=== PATIENT | female | born 1975 | race Hispanic/Latino ===

== ENCOUNTER → 2018-10-20 06:04 | Outpatient (CLI) | payer OTHER, SELFPAY ==
--- NOTE | 2018-10-20 | DI.MRI.S_ITS ---
PROCEDURE: MR KNEE LT WO CON INDICATIONS: Pain in left lower leg TECHNIQUE: Noncontrast sagittal PD fast spin echo and T2 fast spin echo with fat saturation, sagittal 3-D FLASH with fat saturation; coronal T1 spin echo and PD fast spin echo with fat saturation, and axial PD fast spin echo with fat saturation through the knee. COMPARISON: None. FINDINGS: Image quality: Severely degraded by motion artifact on multiple pulse sequences Menisci: The medial meniscus demonstrates myxoid degeneration. No definite tear identified by strict MR criteria although suboptimal evaluation given motion artifact. Lateral meniscal flounce image 26 series 12 without discrete tear. Presumed myxoid degeneration seen in the body on image 17 series 17. Cruciate ligaments: The anterior and posterior cruciate ligaments appear intact. Medial structures: The medial collateral ligament appears intact. The posterior oblique ligament, semimembranosus tendon insertions, oblique popliteal ligament, and meniscocapsular junction appear intact. Visualized portions of the pes anserinus tendons appear normal. No abnormal bursal fluid. Lateral structures: The lateral collateral ligament, long and short heads of the biceps femoris tendon appear intact. The popliteus tendon appears normal; the popliteofibular ligament appears intact. The posterosuperior and anteroinferior popliteomeniscal fascicles appear intact. The arcuate and fabellofibular ligaments appear intact, on either side of the lateral inferior geniculate artery. Iliotibial band appears normal. Anterior structures: Pretibial soft tissue edema. The quadriceps and patellar tendons appear intact. Patellar alignment is normal. No femoral trochlear dysplasia or ventral trochlear prominence. No edema in the infrapatellar fat pad. Bones and cartilage: No focal marrow contusion or discrete low signal fracture line. There are prominent presumed hemopoietic marrow signal changes raise the possibility of anemia. Within the medial compartment, no focal articular cartilage defect. Mild diffuse partial thickness loss is present. Within the lateral compartment, low-grade surface fraying of the femoral articular cartilage without focal defect. Within the patellofemoral compartment, diffuse partial thickness loss of the patellar articular cartilage. Femoral trochlear cartilage appears grossly intact Joint space: No pathologic joint effusion. No evidence of intra-articular loose body however suboptimal evaluation due to motion artifact. 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 Suboptimal evaluation due to motion degraded examination. Pretibial soft tissue edema. Mild degenerative joint disease. Small Reyna's cyst. Hemopoietic marrow signal changes suggest anemia. However recommend correlation with laboratory studies. Dictated by: Kiko Iraheta M.D. on 10/20/2018 at 9:09 Approved by: Kiko Iraheta M.D. on 10/20/2018 at 9:17
== END ==
PROVIDERS: Visit Provider Family Medicine
DX: M79.662 Pain in left lower leg (principal); M17.12 Unilateral primary osteoarthritis, left knee; M25.462 Effusion, left knee; M71.22 Synovial cyst of popliteal space [Baker], left knee
CPT/HCPCS: 73721

== ENCOUNTER 2019-10-17 06:14 | Emergency (ER) | payer OTHER, SELFPAY ==
[2019-10-17 06:22] VITALS: BMI 44.1
[2019-10-17 06:36] VITALS: BP 132/78; PULSE 86; RESP 15; TEMP 37.3; O2SAT 98
[2019-10-17] MEDS: BACITRACIN OINT 0.9 GM PCKT 1 APPLIC TOP (06:40)
--- NOTE | 2019-10-17 06:40 | PC.NURSE ---
pt states she thinks she has a splinter in her L posterior lateral foot x 3 weeks and unable to get it out or see her PCP. ambulatory. states sometimes when she pushes on it pus comes out. denies fever. MD at bedside to remove with needle. bacitracin to area and covered with bandaid
--- NOTE | 2019-10-17 06:57 | ED_ITS ---
HPI - Extremity Injury (Lower) General Chief Complaint: Extremity Injury, Lower Stated Complaint: pain in left foot [id number] Time Seen by Provider: 10/17/19 06:17 History of Present Illness HPI Narrative: 44-year-old woman brings her daughter for evaluation today and and asks to be seen regarding small foreign body in the bottom of her left foot. It has been present for 3 weeks it is tender when she walks on it. No significant erythema or infection. She is not sure what has caused the issue. He has been soaking her foot in water and still has a sensation of a foreign body. She has been unable to get in with her primary care physician and has a tele video appointment regarding this in 5 days. Related Data Home Medications Medication Instructions Recorded Confirmed levonorgestrel [Mirena] 52 mg INTRAU #0 ea 03/02/16 Allergies Allergy/AdvReac Type Severity Reaction Status Date / Time codeine AdvReac Mild VOMITING Unverified 08/14/17 12:31 Coconut Allergy Severe ANGIOEDEMA, Uncoded 08/14/17 12:31 VOMITING, BUMPS AROUND MOUTH Review of Systems Review of Systems Narrative: Pertinent positive and negative findings as per HPI Remainder of review of systems is otherwise unremarkable for Constitutional: Fevers, chills, weakness CV: Chest pain, palpitations, dyspnea on exertion Respiratory: Cough, wheeze, dyspnea GI: Nausea, vomiting, diarrhea, change in bowel habits, black or bloody stools Exam Narrative Exam Narrative: General: Alert appropriate in no acute distress Respiratory: Able to speak in full sentences, no obvious respiratory distress Skin: No obvious rashes, warm and dry Neurologic: Grossly intact no obvious asymmetries or abnormalities Psych, appropriate insight and affect, cooperative Extremity: Miniscule bit of debris in the superficial callus on the lateral aspect of her left foot. no redness, no drainage. Procedure: Using an 18 gauge needle this small bit of debris is lifted from the callus. Antibiotic ointment and Band-Aid are applied. Initial Vital Signs Initial Vital Signs: Vital Signs Temperature 99.2 F 10/17/19 06:36 Pulse Rate 86 10/17/19 06:36 Respiratory Rate 15 10/17/19 06:36 Blood Pressure 132/78 10/17/19 06:36 Pulse Oximetry 98 10/17/19 06:36 Course Orders Ordered: Discontinued Medications Bacitracin (Bacitracin) 1 applic TOP NOW ONE Stop: 10/17/19 06:34 Last Admin: 10/17/19 06:40 Dose: 1 applic Documented by: LATRICE Vital Signs Vital signs: Vital Signs - 8 hr 10/17/19 06:36 Temperature 99.2 F Pulse Rate 86 Respiratory Rate 15 Blood Pressure [Left Arm] 132/78 Pulse Oximetry 98 MDM - Extremity Injury (Lower) MDM Narrative Medical decision making narrative: Minor foreign body in the bottom of her left foot. I believe I was able to remove it simply with an 18 gauge needle and minimal trauma to the area. I did explain to her that sometimes very small pieces of material can cause significant discomfort and if this attempt today d id not get the entire bit of material it would be better to continue soaking with warm water and allow her body to push the trace amount of foreign material out by itself. She is safe for home discharge Discharge Plan Departure Patient Disposition: Home Clinical Impression: Foreign body in foot Qualifiers: Encounter type: initial encounter Laterality: left Qualified Code(s): S90.852A - Superficial foreign body, left foot, initial encounter Instructions: DI for Removal of Foreign Body From Skin Activity Restrictions/Additional Instructions: I believe I was able to get the small splinter out of your foot using an 18 gauge needle. If you still have the sensation of a foreign body, it is okay to soak her foot in warm water and your body will eventually push the foreign body out. Good luck Prescriptions: No Action levonorgestrel [Mirena] 1 EACH intrauterine device 52 mg INTRAU Qty: 0 RF: 0 Referrals: Timothy De La Cruz MD [Primary Care Provider] -
== END 2019-10-17 07:13 | disposition home or self-care (01) ==
PROVIDERS: Emergency Provider Emergency Medicine; PCP Family Medicine
DX: S90.852A Superficial foreign body, left foot, initial encounter (principal)
CPT/HCPCS: 99282

== ENCOUNTER → 2020-04-30 11:10 | Outpatient (CLI) | payer OTHER, SELFPAY ==
--- NOTE | 2020-04-30 11:13 | DI.MG.S_ITS ---
BILATERAL DIGITAL SCREENING MAMMOGRAM 3D/2D WITH CAD: 04/30/2020 CLINICAL: Routine screening. Baseline exam. No prior exams were available for comparison. The tissue of both breasts is heterogeneously dense. This may lower the sensitivity of mammography. Current study was also evaluated with a Computer Aided Detection (CAD) system. No significant masses, calcifications, or other findings are seen in either breast. IMPRESSION: NEGATIVE There is no mammographic evidence of malignancy. A 1 year screening mammogram is recommended. This exam was interpreted at Station ID: [id number]. NOTE: For mammograms, a report in lay terms will be sent to the patient. Approximately 15% of breast malignancies will not be visualized mammographically. In the management of a palpable breast mass, a negative mammogram must not discourage biopsy of a clinically suspicious lesion. Electronically Signed By: Chi pablo/peng:05/02/2020 13:47:13 letter sent: Normal Exam ACR BI-RADS Category 1: Negative [id number]
== END ==
PROVIDERS: PCP Family Medicine; Referring Provider Family Medicine; Visit Provider Family Medicine
DX: Z12.31 Encounter for screening mammogram for malignant neoplasm of breast (principal)
CPT/HCPCS: 77063; 77067

== ENCOUNTER → 2021-05-02 11:14 | Outpatient (CLI) | payer OTHER, SELFPAY ==
--- NOTE | 2021-05-02 | DI.MG.S_ITS ---
BILATERAL DIGITAL SCREENING MAMMOGRAM 3D/2D WITH CAD: 05/02/2021 CLINICAL: Routine screening. Comparison is made to exam dated: 04/30/2020 [facility]. The tissue of both breasts is heterogeneously dense. This may lower the sensitivity of mammography. Current study was also evaluated with a Computer Aided Detection (CAD) system. No significant masses, calcifications, or other findings are seen in either breast. There has been no significant interval change. IMPRESSION: NEGATIVE There is no mammographic evidence of malignancy. A 1 year screening mammogram is recommended. This exam was interpreted at Station ID: [id number]. NOTE: For mammograms, a report in lay terms will be sent to the patient. Approximately 15% of breast malignancies will not be visualized mammographically. In the management of a palpable breast mass, a negative mammogram must not discourage biopsy of a clinically suspicious lesion. Electronically Signed By: Chi pablo/peng:05/02/2021 11:59:16 letter sent: Normal Exam ACR BI-RADS Category 1: Negative [id number]
== END ==
PROVIDERS: PCP Family Medicine; Referring Provider Family Medicine; Visit Provider Family Medicine
DX: Z12.31 Encounter for screening mammogram for malignant neoplasm of breast (principal)
CPT/HCPCS: 77063; 77067

== ENCOUNTER → 2021-07-01 12:35 | Outpatient (CLI) | payer OTHER, SELFPAY ==
--- NOTE | 2021-07-01 12:36 | DI.MRI.S_ITS ---
PROCEDURE: MR CERVICAL SPINE WO CON INDICATIONS: Tension-type headache, unspecified, not intractabl TECHNIQUE: Noncontrast sagittal T1 spin echo and T2 fast spin echo, sagittal STIR, foraminal oblique sagittal T2 fast spin echo, and axial gradient echo or T2 fast spin echo through the cervical spine. COMPARISON: None. FINDINGS: Image quality: Excellent. Alignment and Curvature: There is normal bony alignment. Bone Marrow: Marrow demonstrates normal overall signal. Spinal Cord: Visualized spinal cord has normal size and signal. No cerebellar tonsillar herniation. Paraspinous Soft Tissues: No paravertebral masses. Prevertebral soft tissues are normal in thickness. Discs: Minimal desiccation is present at C3-4 C5-6. C2-C3: No disc bulge, spinal stenosis or foraminal narrowing. C3-C4: No disc bulge, spinal stenosis or foraminal narrowing. C4-C5: Minimal disc bulge with slight effacement of the anterior thecal sac. Mild to moderate right foraminal narrowing with uncovertebral hypertrophy. C5-C6: Minimal disc bulge without spinal stenosis. Minimal to mild bilateral foraminal narrowing, left greater than right with uncovertebral hypertrophy. C6-C7: No disc bulge or spinal stenosis. Minimal to mild left foraminal narrowing with uncovertebral hypertrophy. C7-T1: No disc bulge, spinal stenosis or foraminal narrowing. IMPRESSION: Early degenerative changes most notable at C4-5 as above. Dictated by: Nelda Morris M.D. on 07/03/2021 at 9:47 Approved by: Nelda Morris M.D. on 07/03/2021 at 10:01
== END ==
PROVIDERS: PCP Family Medicine; Referring Provider Family Medicine; Visit Provider Family Medicine
DX: G44.209 Tension-type headache, unspecified, not intractable (principal); R25.2 Cramp and spasm; M47.812 Spondylosis without myelopathy or radiculopathy, cervical region; M54.2 Cervicalgia; S13.4XXA Sprain of ligaments of cervical spine, initial encounter; W19.XXXA Unspecified fall, initial encounter
CPT/HCPCS: 72141

== ENCOUNTER → 2021-11-22 13:34 | Outpatient (CLI) | payer OTHER, SELFPAY ==
--- NOTE | 2021-11-22 13:37 | DI.RAD.S_ITS ---
PROCEDURE: XR CERVICAL SPINE 4V OR 5V INDICATIONS: NECK PAIN TECHNIQUE: 5 views of the cervical spine acquired. COMPARISON: None. FINDINGS: Bones: No fractures or dislocations to the C7 level. Oblique images demonstrate no bony foraminal stenoses. Mild facet hypertrophy throughout the mid and lower cervical spine. Mild multilevel foraminal stenoses throughout the mid and lower cervical spine. Soft tissues: No prevertebral soft tissue swelling. IMPRESSION: Multilevel degenerative disc disease. No acute fracture. No osseous lesion. If symptoms and/or clinical suspicion for pathology persist, further assessment with repeat, or advanced imaging (e.g., CT, MRI, or bone scan) may be helpful for further assessment. Dictated by: Ana Marin M.D. on 11/22/2021 at 15:51 Transcribed by: OMA on 11/22/2021 at 15:52 Approved by: Ana Marin M.D. on 11/22/2021 at 17:01
== END ==
PROVIDERS: PCP Family Medicine; Referring Provider Physical Medicine & Rehabilitation; Visit Provider Physical Medicine & Rehabilitation
DX: M50.120 Mid-cervical disc disorder, unspecified level (principal); M48.02 Spinal stenosis, cervical region
CPT/HCPCS: 72050; 99214

== ENCOUNTER → 2021-12-25 13:15 | Outpatient (CLI) | payer OTHER, SELFPAY ==
[2021-12-25 14:21] LABS: COVID19 -Nasal RAPID Negative (Negative)
== END ==
PROVIDERS: PCP Family Medicine; Referring Provider Physical Medicine & Rehabilitation; Visit Provider Physical Medicine & Rehabilitation
DX: Z20.822 Contact with and (suspected) exposure to COVID-19 (principal)
CPT/HCPCS: 87635; C9803

== ENCOUNTER 2021-12-26 08:58 | Outpatient (CLI) | payer OTHER, SELFPAY ==
[2021-12-26] VITALS (7 sets, daily range): BP systolic 128–160; BP diastolic 84–97; PULSE 65–75; RESP 18–20; TEMP 36.6; O2SAT 98–100
--- NOTE | 2021-12-26 09:00 | DI.RAD.S_ITS ---
PROCEDURE: PAIN C/T INTERLAMINAR INJECT INDICATIONS: SPINAL STENOSIS COMPARISON: [facility], MR, MR CERVICAL SPINE WO CON, 07/01/2021, 12:40. [facility], CR, XR CERVICAL SPINE 4V OR 5V, 11/22/2021, 14:26. FINDINGS: Fluoroscopic spot filming was performed to verify placement of a spinal needle at the C6-C7 level, as labeled on the films. Appropriate location of the needle tip was confirmed by injection of iodinated contrast. IMPRESSION: No significant intraprocedural abnormality. Dictated by: Wally Wang M.D. on 12/26/2021 at 13:28 Approved by: Wally Wang M.D. on 12/26/2021 at 13:29
--- NOTE | 2021-12-26 10:25 | PC.NURSE ---
Patient reports blood in urine and vague urinary symptoms. Denies burning/pain, urgency, frequency upon urination. States she has an appt with her PCP on Saturday. Urine dip completed - WNL except for + blood. Dr. Zhong reviewed. Patient wishes to proceed with injection.
[2021-12-26] MEDS: MIDAZOLAM 2 MG/2 ML VIAL IV (10:37)
--- NOTE | 2021-12-26 10:53 | P.PCN_ITS ---
Date/Time/Diagnoses Date of procedure: 12/26/21 Time of procedure: 10:53 Pre-procedure diagnosis: 1. CERVICAL STENOSIS, 2. CERVICAL HNP WITH UPPER EXTREMITY RADICULAR FEATURES Post-procedure diagnosis: same Procedure Notes Procedure: 1. FLUORSCOPICALLY GUIDED CONTRAST CONTROLLED INTERLAMINAR EPIDURAL STEROID INJECTION - C6/7 TL ARLETTE Indications: Marleny is referred by Dr. Flores for treatment of Cervical HNP with Upper Extremity Paresthesias. Physician: Arash Zhong Total Fluoroscopy time (seconds): 24 Total sedation minutes: 12 Complications: none Procedure in detail & Post-procedure care: FINDINGS Cervical Stenosis due to disc deterioration and nerve root irritation and nerve root irritation DESCRIPTION OF PROCEDURE Fluoroscopically guided, contrast-controlled C6/7 translaminar epidural steroid injection with conscious sedation. Following review of allergy and review of potential side effects and complications, including, but not necessarily limited to, infection, allergic reaction, local tissue breakdown, temporary as well as permanent nerve injury, stroke, paralysis, and possible , the patient indicated that patient understood and agreed to proceed. An informed consent document was signed by the patient, witnessed by a nurse, and placed in the patient's chart. Additionally, other treatment options including modalities, medications, and physical therapy were reviewed with the patient. After review of previous anaesthesic history and IV conscious sedation the patient was deemed safe to proceed with today?s procedure with IV conscious sedation as ASA class II designation. Safety time-out was performed to confirm patient ID, procedure to be performed and site of procedure. IV sedation was accomplished with a combination of 2mg of Versed administered by the RN after DO order, titrated to patient comfort during the course of the procedure while the patient remained responsive to all verbal commands. In the prone position, following sterile prep and drape of the cervical region, the C6/7 translaminar space was identified fluoroscopically. The skin was anesthetized via a 25-gauge 1.5-inch needle with 1% lidocaine solution. At this point, a 25-gauge, 2.5-inch short bevel spinal needle was atraumatically introduced and advanced under fluoroscopic guidance into epidural space at the C6/7 translaminar space. Depth was confirmed on lateral view. Radiological data, including multiple fluoroscopic views of the cervical spine, reveal a spinal needle at the C6/7 translaminar space. Lateral views then show placement of the needle in the epidural space. Subsequent views show contrast material flowing superiorly and inferiorly in the epidural space. DSA fluoroscopy with live contrast injection, once again, confirmed no vascular or intrathecal uptake. At this point, using loss of resistance technique with saline and air, the epidural space was entered. Following negative aspiration, injection of approximately 1.5 cc of Isovue-200 with live fluoroscopy in the AP view confirmed epidural flow in the epidural space without vascular or intrathecal uptake observed. Subsequently, a test dose of 1 cc of 1% lidocaine solution was injected and patient was observed for two minutes without signs or symptoms of complications, including abdominal pain, shortness of breath, bilateral upper or lower extremity weakness, nausea and vomiting, prior to steroid injection. At this point, 3cc or 30mg of dexamethasone was then injected without incident. The patient tolerated the procedure well without signs or symptoms of comp lications prior to being transferred to the recovery area for further monitoring, The patient was then transferred to the recovery area where they were observed for an appropriate period of time after the injection. The patient reported a VAS score of 6 prior to the procedure and a post-procedure VAS of 0. POST OP INSTRUCTIONS The patient was provided a Pain Log to continue to record their response to the target-specific procedure prior to follow-up visit with the referring provider. Additionally, specific post-injection care instructions and a contact number to our office were provided if concerns arise regarding possible complications associated with the procedure are suspected.
[2021-12-26] MEDS: DEXAMETHASONE 10 MG/ML VIAL 30 MG INJ (10:59)
[2021-12-26] MEDS: IOPAMIDOL 15 ML VIAL 3 ML INJ (10:59)
[2021-12-26] MEDS: BUPIVACAINE 0.25% (PF) VIAL 2 ML INJ (10:59)
== END 2021-12-26 11:15 | disposition home or self-care (01) ==
PROVIDERS: PCP Family Medicine; Referring Provider Physical Medicine & Rehabilitation; Visit Provider Physical Medicine & Rehabilitation
DX: M48.02 Spinal stenosis, cervical region (principal); M50.123 Cervical disc disorder at C6-C7 level with radiculopathy
CPT/HCPCS: 62321; 99152; J1100; J2250; J3490

== ENCOUNTER 2021-12-28 09:05 | Emergency (ER) | payer OTHER, SELFPAY ==
[2021-12-28 09:10] VITALS: BP 174/102; PULSE 77; RESP 18; TEMP 36.5; O2SAT 97; BMI 48.8
--- NOTE | 2021-12-28 12:53 | ED.NECK ---
HPI - Neck Pain/Injury <Arti Jimenez, [facility] - Last Filed: 12/28/21 13:58> General Chief Complaint: Neck Pain/Injury Stated Complaint: HEADACHE AND ARM PAIN Time Seen by Provider: 12/28/21 12:17 Mode of arrival: Ambulatory History of Present Illness HPI Narrative: This is a 46-year-old female with history cervical spinal stenosis who received a corticosteroid injection fluoroscopically guided from Dr. Arash Zhong on 12/26/2021 who presents to the emergency department today complaining increased pain which has spread to bilateral upper arms, she states that she feels flushed like her hands and upper extremities are swelling and warm, states that the pain shoots into her face. She has a history of Cervical Stenosis due to disc deterioration and nerve root irritation. Patient denies any weakness, mental status changes, incontinence, states that she has had a headache, denies anyl difficulty concentrating or walking. States that the procedure went well and she did not pain or complications afterwards, states that it started to feel warm and progressive over the last 2 days since she had this completed. She states that she has phoned Dr. Zhong's office but has not heard back from them yet. During my history physical, the office called back to assess the patient, spoke with Dr. Zhong as well, please see consultation note. Related Data Home Medications Medication Instructions Recorded Confirmed levonorgestrel 20 mcg/24 hours (7 52 mg INTRAU #0 ea 03/02/16 11/22/21 yrs) 52 mg intrauterine device (Mirena) cetirizine 10 mg tablet 10 mg PO BEDTIME 11/22/21 11/22/21 diclofenac sodium 1 % topical gel 2 g topical QID 11/22/21 11/22/21 fluticasone propionate 50 1 spray intranasal DAILY 11/22/21 11/22/21 mcg/actuation nasal spray,suspension Previous Rx's Medication Instructions Recorded cyclobenzaprine 10 mg tablet 10 mg PO .PRN SPASM #60 tabs 01/02/22 diclofenac sodium 75 mg 75 mg PO BID pain #60 tabs 01/02/22 tablet,delayed release gabapentin 300 mg capsule 300 mg PO TID PRN steroid 01/02/22 flare/nerve pain #20 caps Allergies Allergy/AdvReac Type Severity Reaction Status Date / Time coconut Allergy Severe ANGIOEDEMA, Verified 12/26/21 10:02 VOMITING, BUMPS AROUND MOUTH codeine AdvReac Mild VOMITING Unverified 11/22/21 15:02 Review of Systems <JOCELYN Huerta - Last Filed: 12/28/21 13:58> Review of Systems Narrative: Review of systems is negative for acute abnormalities unless otherwise noted in HPI Patient History <JOCELYN Huerta - Last Filed: 12/28/21 13:58> Medical History Cervical radiculopathy Surgical History H/O abdominal surgery History of cholecystectomy Family History Father Diabetes mellitus Hypertension Mother Diabetes mellitus Social History Smoking Status: Never smoker Smoking Status: Never smoker alcohol intake frequency: holidays/special occasions only Substance Use Type: does not use Exam <JOCELYN Huerta - Last Filed: 12/28/21 13:58> Narrative Exam Narrative: Reviewed vitals signs and nursing notes. General: cooperative, in no acute distress, well groomed, afebrile, anxious HEENT: symmetrical facial expressions, moist mucous membranes Cardiovascular: regular rate and rhythm, no peripheral edema, warm extremities Respiratory: normal effort, able to speak in complete sentences, without wheezing, stridor, or abnormal breath sounds. No retractions or tachypnea. GI: abdomen soft, nontender to palpation, nondistended, without masses, rebound tenderness or exquisite tenderness with exam. MSK: moves all extremities, neurovascularly intact, no weakness, normal tone Skin: Patient's skin is flushed especially her cheeks and upper extremities, brisk capillary refill, without pallor or erythema, no surrounding erythema, ecchymosis, lump or tenderness near her posterior cervical injection site. Difficult to find. Neuro: normal speech and cognition, A&O x3, ambulatory, clear speech Psych: mental status is grossly normal, congruent mood, normal affect, pleasant and cooperative Initial Vital Signs Initial Vital Signs: Vital Signs Temperature 97.7 F 12/28/21 09:10 Pulse Rate 77 12/28/21 09:10 Respiratory Rate 18 12/28/21 09:10 Blood Pressure 174/102 H 12/28/21 09:10 Pulse Oximetry 97 12/28/21 09:10 Oxygen Delivery Method 12/28/21 09:10 <Kavita York DO - Last Filed: 01/03/22 08:11> Initial Vital Signs Initial Vital Signs: Vital Signs Temperature 97.7 F 12/28/21 09:10 Pulse Rate 77 12/28/21 09:10 Respiratory Rate 18 12/28/21 09:10 Blood Pressure 174/102 H 12/28/21 09:10 Pulse Oximetry 97 12/28/21 09:10 Oxygen Delivery Method 12/28/21 09:10 Course <JOCELYN Huerta - Last Filed: 12/28/21 13:58> Orders Ordered: Discontinued Medications Gabapentin (Gabapentin 100 Mg Capsule) 300 mg PO NOW ONE Stop: 12/28/21 12:47 Last Admin: 12/28/21 13:03 Dose: 300 mg Documented By: DENNIS Ketorolac Tromethamine (Ketorolac 30 Mg/Ml Vial) 15 mg IM NOW ONE Stop: 12/28/21 12:47 Last Admin: 12/28/21 13:03 Dose: 15 mg Documented By: DENNIS Consultations Consultation #1: Consultation with Dr. Zhong who states that patient is still having her dexamethasone flare, she received 30 mg injected without any complications. He denies any need for imaging, patient's injection site is without erythema, hematoma, skin changes or lumps. He recommends adding gabapentin and ketorolac to use in addition to her diazepam for her steroid flare. She took half a tab prior to receiving Toradol and gabapentin in the emergency department and had improvement of her symptoms. Vital Signs Vital signs: Vital Signs - 8 hr 12/28/21 09:10 Temperature 97.7 F Pulse Rate 77 Respiratory Rate 18 Blood Pressure 174/102 H Pulse Oximetry 97 Oxygen Delivery Method Room Air <Kavita York DO - Last Filed: 01/03/22 08:11> Orders Ordered: Discontinued Medications Gabapentin (Gabapentin 100 Mg Capsule) 300 mg PO NOW ONE Stop: 12/28/21 12:47 Last Admin: 12/28/21 13:03 Dose: 300 mg Documented By: DENNIS Ketorolac Tromethamine (Ketorolac 30 Mg/Ml Vial) 15 mg IM NOW ONE Stop: 12/28/21 12:47 Last Admin: 12/28/21 13:03 Dose: 15 mg Documented By: DENNIS Vital Signs Vital signs: Vital Signs - 8 hr 12/28/21 09:10 Temperature 97.7 F Pulse Rate 77 Respiratory Rate 18 Blood Pressure 174/102 H Pulse Oximetry 97 Oxygen Delivery Method Room Air MDM - Neck Pain/Injury <VAHE HuertaP - Last Filed: 12/28/21 13:58> Imaging Data Pain C/t interlaminar injection: Radiologist's Impression: PROCEDURE:? PAIN C/T INTERLAMINAR INJECT ? INDICATIONS:? SPINAL STENOSIS ? COMPARISON:? [facility], MR, MR CERVICAL SPINE WO CON, 07/01/2021, 12:40.? [facility], CR, XR CERVICAL SPINE 4V OR 5V, 11/22/2021, 14:26. ? FINDINGS:? ? Fluoroscopic spot filming was performed to verify placement of a spinal needle at the C6-C7 level, as labeled on the films.? Appropriate location of the needle tip was confirmed by injection of iodinated contrast. ? ? IMPRESSION:? No significant intraprocedural abnormality.? Dictated by: Wally Wang M.D. on 12/26/2021 at 13:28 ? ? Approved by: Wally Wang M.D. on 12/26/2021 at 13:29 ? [facility] Narrative Medical decision making narrative: This is a 46-year-old female with history of cervical spinal stenosis and radiculopathy who presents to the emergency department for symptoms consistent with steroid flare after fluoroscopic guided dexamethasone injection on 12/26/[address] Zhong on 12/26/2021. Patient received 30 mg of dexamethasone and is expected to have steroid flare over the next 3 days, she was prescribed diazepam 10 mg tablets and took half a tab prior to getting a room in the emergency department. I spoke with Dr. Zhong who recommends gabapentin and ketorolac in conjunction with her diazepam and cyclobenzaprine to use at night. Shins for medication was were written clearly so she understands and is witnessed by her family care person. Dr. Zhong's nurse will follow-up with patient tomorrow morning, she understands to return to the emergency department for any new or worsening symptoms, weakness, mental status changes. She does not have any neuro deficits on exam, her injection site is without erythema, hematoma, lump, or any abnormal findings. She is ambulatory with steady gait and felt much better after Toradol injection and gabapentin. Patient is appropriate and amenable to discharge home. Vital signs are stable on repeat examination is unremarkable. Patient has been informed of results. Patient has been given strict return to ER precautions for any new or worsening symptoms. Patient understands to follow up closely with outpatient providers as instructed. Patient understands plan and agrees to discharge home. All questions and concerns answered at this time. Discharge Plan Departure Patient Disposition: Home Clinical Impression: Cervical radiculopathy, Status post epidural steroid injection Instructions: Spinal Corticosteroid Injection Activity Restrictions/Additional Instructions: *You have been diagnosed with symptoms consistent with a steroid flare after injection of a steroid. This causes flushing, and nerve pain which spreads and flares along with the response to the medication. This will improve. Please take half a tab of diazepam as needed for this pain, 1 tab of ketorolac every 8 hours with food and water for anti-inflammatory, and 300 mg of gabapentin as needed. These 2 medications will make you sleepy, please evaluate how you feel and determine if you are able to work tomorrow or not. Please use cyclobenzaprine at nighttime for spasm. Please do not take cyclobenzaprine at the same time as gabapentin or diazepam. I hope you start feeling better soon. The nurse from Dr. Zhong's office will call you tomorrow to see how you are doing. Please come back to the emergency department for any new or worsening symptoms. Please rest as you need to and continue to move your body so that you do not get stiff and sore. *What to do: *Please continue to take your regular medications as directed. [x ] New medication prescriptions sent to your pharmacy: [[facility] ] [ ] New medication written as a paper prescription [ ] No new medications given *Please follow up with your primary care provider in 2-3 days, call for an appointment. Let them know you were seen in the Emergency Department and that we asked that you be seen for follow-up. We will electronically transmit a record of today's note if your PCP is in our system *If you do not have a primary care provider please contact [phone] to establish care with one of the [facility] primary care providers. *Return to Emergency Department if you should have any new, worsening, or concerning symptoms, such as [fever greater than 101F, chills, worsening pain, persistent vomiting or other bothersome symptoms]. Prescriptions: No Action levonorgestrel [Mirena] 1 EACH intrauterine device 52 mg INTRAU Qty: 0 gabapentin 300 mg capsule 300 mg PO TID PRN (Reason: steroid flare/nerve pain) Qty: 20 0RF diclofenac sodium 75 mg tablet,delayed release (DR/EC) 75 mg PO BID Qty: 60 1RF Rx Instructions: TAKE WITH FOOD cyclobenzaprine 10 mg tablet 10 mg PO .PRN Qty: 60 2RF diclofenac sodium 1 % gel 2 g topical QID fluticasone propionate 50 mcg/actuation spray,suspension 1 spray intranasal DAILY cetirizine 10 mg tablet 10 mg PO BEDTIME Referrals: Arash Zhong DO [Physician] - Leola Flores DO [Primary Care Provider] - Visit Report Forms: Patient Portal/API <Kavita York DO - Last Filed: 01/03/22 08:11> Cosign ED Attending Reature Attestation: I was immediately available in the department for consultation. Documentation has been reviewed. I agree with assessment and plan.
[2021-12-28] MEDS: GABAPENTIN 100 MG CAPSULE 300 MG PO (13:03)
[2021-12-28] MEDS: KETOROLAC 30 MG/ML VIAL 15 MG IM (13:03)
== END 2021-12-28 13:58 | disposition home or self-care (01) ==
PROVIDERS: Emergency Provider Nurse Practitioner Critical Care Medicine; PCP Family Medicine
DX: M54.12 Radiculopathy, cervical region (principal); Z92.241 Personal history of systemic steroid therapy
CPT/HCPCS: 96372; 99283; J1885

== ENCOUNTER → 2022-02-04 09:25 | Outpatient (CLI) | payer OTHER, SELFPAY ==
--- NOTE | 2022-02-04 09:26 | DI.CT.S_ITS ---
PROCEDURE: CT IVP A/P W/WO INDICATIONS: Other microscopic hematuria TECHNIQUE: Optional 5 mm thick noncontrast images acquired from the diaphragm to the symphysis pubis. After the administration of intravenous contrast, 5 mm thick images acquired from the diaphragm to the symphysis pubis after a 10-minute delay. 2 mm thick coronal and sagittal reformats were then performed of the kidneys and ureters. For radiation dose reduction, the following was used: automated exposure control, adjustment of mA and/or kV according to patient size. COMPARISON: None. FINDINGS: Lower thorax: Right basilar posterior pleural thickening. Heart size normal. Small hiatal hernia noted. Liver: The liver is diffusely decreased in attenuation without focal mass lesion. Biliary system: Cholecystectomy. No intra or extrahepatic bile duct dilation. Pancreas: Unremarkable without mass or inflammation evident. Spleen: Normal in size and density. Adrenals: Normal morphology and density. Reproductive system: Anterior device noted in place Urinary system: Normal renal size and attenuation. Left renal 1.7 cm simple cyst noted No renal calculi, hydronephrosis, or solid mass present. Urinary bladder unremarkable. Gastrointestinal system: The bowel is unremarkable without evidence of bowel obstruction or inflammation. The stomach appears unremarkable. Appendix: No findings to suggest acute appendicitis. Peritoneal spaces: No mesenteric or retroperitoneal adenopathy. No free air. No free fluid. Vasculature: The IVC, aorta and iliac vasculature are unremarkable. Abdominal wall: Ventral hernia measures 3.5 cm contains fat without bowel involvement. Adjacent surgical clip noted Musculoskeletal: Normal bone mineralization. No acute fractures. IMPRESSION: 1. Unremarkable renal collecting system without evidence of obstructive uropathy or calculus. Incidental small left renal simple cyst. Normal urinary bladder. 2. Incidental cholecystectomy, small ventral and hiatal hernias, IUD Approved by: Ilir Bassett M.D. on 02/04/2022 at 10:03
== END ==
PROVIDERS: PCP Family Medicine; Referring Provider Physician Assistant Medical; Visit Provider Physician Assistant Medical
DX: R31.29 Other microscopic hematuria (principal); N28.1 Cyst of kidney, acquired; K43.9 Ventral hernia without obstruction or gangrene; K44.9 Diaphragmatic hernia without obstruction or gangrene; Z90.49 Acquired absence of other specified parts of digestive tract; Z97.5 Presence of (intrauterine) contraceptive device
CPT/HCPCS: 74178; Q9967

== ENCOUNTER → 2022-04-13 08:24 | Outpatient (CLI) | payer OTHER, SELFPAY ==
--- NOTE | 2022-04-13 08:25 | DI.US.S_ITS ---
PROCEDURE: US PELVIC COMPLETE INDICATIONS: ABNORMAL UTERINE AND VAGINAL BLEEDING TECHNIQUE: Real-time scanning was performed of the pelvic organs, with image documentation. Additional endovaginal scanning was necessary due to incomplete visualization of the adnexal and endometrial structures by transabdominal scanning. COMPARISON: [facility], US, PELVIC COMPLETE, 09/12/2014, 14:55. [facility], CT, CT IVP A/P W/WO, 02/04/2022, 9:44. FINDINGS: Uterus: Uterus is anteverted and normal in size at 8.2 x 5.1 x 4.3 cm. The myometrium is homogeneous. There is a right anterior intramural uterine fibroid seen measuring up to 9 mm. The endometrium measures 4 mm combined thickness. The IUD is seen at its expected location. Ovaries: The right ovary measures up to 5.7 cm. Its volume is nearly completely composed of a simple cyst that measures 5 x 5.4 x 4 cm. Normal appearing arterial waveforms are confirmed to the right ovary. Less than 12 follicles can be seen involving the right ovary. The left ovary is not well seen. Other: No pathologic free abdominal or pelvic fluid. This study is highly limited by body habitus and bowel gas. IMPRESSION: No significant uterine abnormality is seen, although a 9 mm intramural fibroid is seen on the right anteriorly. The IUD is seen at its expected location. There is a large right ovarian cyst seen that measures up to 5.4 cm. If it would be clinically appropriate, a followup pelvic ultrasound could be considered in 6 weeks to assure resolution/ improvement. The left ovary is not seen. We strive to produce accurate, complete, and clear reports of imaging services. To assist us in improving patient care, this report was composed using standard report templates and voice recognition software. Therefore, it may contain abnormal punctuation, insertions and/or omissions. Occasional wrong-word or sound-alike substitutions may occur. Though we review the report and make efforts to correct it, we do recommend that the report be read carefully in proper context to recognize any text inaccuracies. Dictated by: Wally Wang M.D. on 04/13/2022 at 15:10 Approved by: Wally Wang M.D. on 04/13/2022 at 15:13
== END ==
PROVIDERS: PCP Family Medicine; Referring Provider Obstetrics & Gynecology; Visit Provider Obstetrics & Gynecology
DX: N92.1 Excessive and frequent menstruation with irregular cycle (principal); N93.9 Abnormal uterine and vaginal bleeding, unspecified; N83.291 Other ovarian cyst, right side; D25.1 Intramural leiomyoma of uterus; Z97.5 Presence of (intrauterine) contraceptive device
CPT/HCPCS: 76830; 76856; 93976

== ENCOUNTER → 2022-05-26 09:30 | Outpatient (CLI) | payer OTHER, SELFPAY ==
--- NOTE | 2022-05-26 | DI.MG.S_ITS ---
BILATERAL DIGITAL SCREENING MAMMOGRAM 3D/2D WITH CAD: 05/26/2022 CLINICAL: Routine screening. Comparison is made to exams dated: 05/02/2021 mammogram and 04/30/2020 mammogram - [facility]. Both breasts are heterogeneously dense, which may obscure small masses (category c / 51-75% glandular tissue). Current study was also evaluated with a Computer Aided Detection (CAD) system. No significant masses, calcifications, or other findings are seen in either breast. There has been no significant interval change. IMPRESSION: NEGATIVE There is no mammographic evidence of malignancy. A 1 year screening mammogram is recommended. Based on the Tyrer Cuzick model (a risk assessment model) the patient's lifetime risk is 13.0% and her 10 year risk is 2.2%. According to the ACR, ACS, and NCCN guidelines, an annual breast MRI exam along with mammogram is recommended if the patient's lifetime risk is 20% or greater. This exam was interpreted at Station ID: [id number]. NOTE: For mammograms, a report in lay terms will be sent to the patient. Approximately 15% of breast malignancies will not be visualized mammographically. In the management of a palpable breast mass, a negative mammogram must not discourage biopsy of a clinically suspicious lesion. Electronically Signed By: Clayton carpenter/peng:05/28/2022 02:25:38 letter sent: Normal Exam ACR BI-RADS Category 1: Negative [id number]
== END ==
PROVIDERS: PCP Family Medicine; Referring Provider Family Medicine; Visit Provider Family Medicine
DX: Z12.31 Encounter for screening mammogram for malignant neoplasm of breast (principal)
CPT/HCPCS: 77063; 77067

== ENCOUNTER → 2023-06-01 08:50 | Outpatient (CLI) | payer OTHER, SELFPAY ==
--- NOTE | 2023-06-01 08:51 | DI.MG.S_ITS ---
BILATERAL DIGITAL SCREENING MAMMOGRAM 3D/2D WITH CAD: 06/01/2023 CLINICAL: Routine screening. Comparison is made to exams dated: 05/26/2022 mammogram, 05/02/2021 mammogram, and 04/30/2020 mammogram - [facility]. Both breasts are heterogeneously dense, which may obscure small masses (category c / 51-75% glandular tissue). Current study was also evaluated with a Computer Aided Detection (CAD) system. No significant masses, calcifications, or other findings are seen in either breast. There has been no significant interval change. IMPRESSION: NEGATIVE There is no mammographic evidence of malignancy. A 1 year screening mammogram is recommended. Based on the Tyrer Cuzick model (a risk assessment model) the patient's lifetime risk is 13.0% and her 10 year risk is 2.4%. According to the ACR, ACS, and NCCN guidelines, an annual breast MRI exam along with mammogram is recommended if the patient's lifetime risk is 20% or greater. This exam was interpreted at Station ID: [id number]. NOTE: For mammograms, a report in lay terms will be sent to the patient. Approximately 15% of breast malignancies will not be visualized mammographically. In the management of a palpable breast mass, a negative mammogram must not discourage biopsy of a clinically suspicious lesion. Electronically Signed By: Loraine leone/peng:06/03/2023 12:53:54 letter sent: Normal Exam ACR BI-RADS Category 1: Negative [id number]
== END ==
LOC: MAMMO 08:51
PROVIDERS: PCP Family Medicine; Referring Provider Family Medicine; Visit Provider Family Medicine
DX: Z12.31 Encounter for screening mammogram for malignant neoplasm of breast (principal); R92.333 Mammographic heterogeneous density, bilateral breasts
CPT/HCPCS: 77063; 77067

== ENCOUNTER → 2024-07-22 17:08 | Outpatient (CLI) | payer OTHER, SELFPAY ==
--- NOTE | 2024-07-22 17:10 | DI.MG.S_ITS ---
MM screening mammo BI: 07/22/2024. BI-RADS: 1 CLINICAL: 48-year old female for bilateral screening mammogram. Tyrer-Cuzick lifetime risk of 9.1%. No personal or first-degree family history of breast cancer. PRIOR EXAMS 06/01/2023, 05/26/2022, 05/02/2021, 04/30/2020. MAMMOGRAPHY TECHNIQUE: 2D and 3D (tomosynthesis) digital mammographic views obtained, with additional images as needed for full coverage. Current study was also evaluated with a Computer Aided Detection (CAD) system. DENSITY C. The breasts are heterogeneously dense, which may obscure small masses. MAMMOGRAPHY FINDINGS Bilateral: No suspicious mass, asymmetry, microcalcification, or other abnormality seen. IMPRESSION: * No evidence of malignancy. RECOMMENDATIONS Bilateral * Annual screening mammography. OVERALL ASSESSMENT CATEGORY BI-RADS-1: Negative. The [employer] recommends annual screening mammography beginning at age 40 for women with average risk of breast cancer. ELECTRONICALLY SIGNED: Britta Lyles M.D. on 07/23/2024 at 08:49:13 AM PT Interpreting Station ID: [id number]
== END ==
LOC: MAMMO 17:10
PROVIDERS: PCP Family Medicine; Referring Provider Nurse Practitioner Family; Visit Provider Nurse Practitioner Family
DX: Z12.31 Encounter for screening mammogram for malignant neoplasm of breast (principal)
CPT/HCPCS: 77063; 77067